=== PATIENT | female | born 1960 | race Caucasian/White ===

== ENCOUNTER → 2019-02-20 06:35 | Outpatient (CLI) | payer OTHER, SELFPAY ==
--- NOTE | 2019-02-21 10:06 | EEG_ITS ---
- Electroencephalogram Date of service 02/20/2019 This is an 18 channel electroencephalogram performed utilizing the International 10-20 electrode placement protocol as well as hyperventilation, photic stim elation and EKG reference leads on this 59-year-old female with a history of seizure-like activity. Background activity is 9 Hz symmetrically in the post erior leads which attenuates with eye opening. Hyperventilation is performed for minutes with good effort with no lateralizing or epileptiform changes. The patient did experience wakefulness and sleep during the recording without epileptiform changes. Photic stimulation generates a normal symmetric driving response and EKG is normal sinus rhythm throughout the recording. Impression this is a normal awake and asleep electroencephalogram.
== END ==
PROVIDERS: Family Provider Nurse Practitioner Family; PCP Nurse Practitioner Family; Referring Provider Nurse Practitioner Family; Visit Provider Nurse Practitioner Family
DX: R56.9 Unspecified convulsions (principal)
CPT/HCPCS: 95819

== ENCOUNTER → 2024-08-16 | Outpatient (CLI) | payer MEDICARE, OTHER, SELFPAY ==
--- NOTE | 2024-08-16 10:53 | NEURO ---
NCS and/or EMG Patient Report Ordering Doctor: Josiah King DATE OF SERVICE: 08/16/24 Barby presents for electrodiagnostic testing of the right upper limb. She reports numbness and tingling in the right hand. Electrodiagnostic findings: Right median motor nerve demonstrates prolonged latency with normal amplitude and conduction velocity. Normal right ulnar motor response, including conduction across the elbow. Normal right median and ulnar F?wave. Prolonged right median sensory latency at the wrist. Needle EMG testing was performed the right upper limb. All muscles tested showed no evidence of denervation with normal motor unit action potentials. Electrodiagnostic impression: This is an abnormal study in the right upper limb. 1. Eectrodiagnostic findings suggestive of right-sided median mononeuropathy. This is consistent with a mild to moderate right carpal tunnel syndrome. Multi Select Codes Neurology Neurology Interp Codes: 17796-28 Musc test done w/n test comp (interp) and 92981-66 Nrv cndj test 7-8 studies (interp)
== END | disposition home or self-care (01) ==
LOC: PSN 09:39
PROVIDERS: PCP Nurse Practitioner Family; Referring Provider Orthopaedic Surgery Sports Medicine; Visit Provider Orthopaedic Surgery Sports Medicine
DX: G56.03 Carpal tunnel syndrome, bilateral upper limbs (principal)
CPT/HCPCS: 95886; 95909